=== PATIENT | female | born 1990 | race Caucasian/White ===

== ENCOUNTER 2019-02-03 21:34 | Emergency (ER) | payer MEDICAID ==
--- NOTE | 2019-02-03 23:06 | UC ---
Knee Pain HPI - HPI Summary HPI Summary: FELL DOWN THE STAIRS 3 DAYS AGO AND INJURED HER LEFT KNEE. STATES THE PAIN IS PERSISTENT. IS ABLE TO WEIGHT-BEAR BUT WITH PAIN. - History of Current Complaint Chief Complaint: UCLowerExtremity Stated Complaint: KNEE PAIN Time Seen by Provider: 02/03/19 22:34 Hx Obtained From: Patient Hx Last Menstrual Period: IUD Onset/Duration: Sudden Onset, Lasting Days, Still Present Severity Initially: Moderate Severity Currently: Moderate Pain Intensity: 4 Pain Scale Used: 0-10 Numeric Character: Sharp Aggravating Factor(s): Movement, Weight Bearing Alleviating Factor(s): Rest Associated Signs And Symptoms: Positive: Negative Able to Bear Weight: Yes - WITH PAIN - Allergies/Home Medications Allergies/Adverse Reactions: Allergies Allergy/AdvReac Type Severity Reaction Status Date / Time No Known Allergies Allergy Verified 02/03/19 22:05 Home Medications: Home Medications Ibuprofen TAB* [Advil TAB*] 600 mg PO PRN 02/03/19 [History] Iud* 02/03/19 [History] PMH/Surg Hx/FS Hx/Imm Hx Previously Healthy: Yes - Surgical History Surgical History: Yes Surgery Procedure, Year, and Place: breast reduction 2011 - Family History Known Family History: Positive: Non-Contributory - Social History Alcohol Use: Occasionally Substance Use Type: None Smoking Status (MU): Never Smoked Tobacco Review of Systems All Other Systems Reviewed And Are Negative: Yes Constitutional: Positive: Negative Skin: Positive: Negative Respiratory: Positive: Negative Cardiovascular: Positive: Negative Gastrointestinal: Positive: Negative Musculoskeletal: Positive: Arthralgia. Negative: Decreased ROM, Edema Physical Exam Triage Information Reviewed: Yes Appearance: Well-Appearing, No Pain Distress, Well-Nourished Vital Signs: Initial Vital Signs Temp 98.6 F 02/03/19 22:02 Pulse 104 02/03/19 22:02 Resp 16 02/03/19 22:02 BP 110/66 02/03/19 22:02 Pulse Ox 99 02/03/19 22:02 Vital Signs Reviewed: Yes Eyes: Positive: Conjunctiva Clear ENT: Positive: Hearing grossly normal Neck: Positive: Supple Respiratory: Positive: No respiratory distress, No accessory muscle use Cardiovascular: Positive: Pulses Normal Abdomen Description: Positive: Soft Musculoskeletal: Positive: ROM Intact, No Edema, Other: - LEFT KNEE: NO JOINT LINE TENDERNESS OR FOCAL TENDERNESS OVER ANY BONY PROMINENCES. HAS MILD DIFFUSE TENDERNESS. MCL AND LCL INTACT TO STRESS TESTING. NEG LACHMANS. NEG DRAWERS SIGNS. NEG MCMURRAYS. NEG PATELLAR APPREHENSION TEST. FULL ROM Neurological: Positive: Alert Psychological: Positive: Age Appropriate Behavior Skin: Negative: Rashes Diagnostics - Radiology LEFT KNEE XRAY Radiology Interpretation Completed By: ED Physician Summary of Radiographic Findings: NO FRACTURE Knee Pain Course/Dx - Course Course Of Treatment: NO FRACTURE ON MY INITIAL INTERPRETATION TODAY. RADIOLOGY READ PENDING. MARCO WRAP APPLIED BY RN. PATIENT DECLINES CRUTCHES. IS REQUESTING PAIN MEDICATION. ADVISED THAT HER INJURY DOES NOT JUSTIFY NARCOTIC PRESCRIPTION TODAY. OFFERED PRESCRIPTION STRENGTH ANTI-INFLAMMATORIES. PATIENT DECLINES. ADVISED FOLLOW-UP WITH ORTHOPEDICS IF HER SYMPTOMS ARE NOT IMPROVING OVER THE NEXT WEEK OR SO. - Differential Dx/Diagnosis Provider Diagnosis: Left knee sprain Discharge ED - Sign-Out/Discharge Documenting (check all that apply): Patient Departure All imaging exams completed and their final reports reviewed: No - Discharge Plan Condition: Stable Disposition: HOME Patient Education Materials: Knee Sprain (ED) Referrals: Dung Alonzo MD [Medical Doctor] - If Needed Additional Instructions: XRAY TODAY NEGATIVE FOR FRACTURE OR DISLOCATION ON MY INITIAL INTERPRETATION. WE WILL CALL YOU TOMORROW IF THE RADIOLOGY READ DIFFERS. YOUR SYMPTOMS SHOULD IMPROVE SIGNIFICANTLY OVER THE NEXT 1-2 WEEKS. IF YOU DO NOT IMPROVE EXPECTED FOLLOW-UP WITH YOUR PCP OR ORTHO. YOU MAY BENEFIT FROM REPEAT/MORE ADVANCED IMAGING AT THAT TIME. OTC IBUPROFEN OR ALEVE NEEDED FOR DISCOMFORT. REST, ICE, COMPRESS, ELEVATE. MARCO WRAP NEEDED FOR SYMPTOM RELIEF. BE SURE TO GO THROUGH SLOW RANGE OF MOTION AND STRETCHING EXERCISES DAILY YOU ARE ABLE TO PREVENT STIFFENING UP AND MAKING THE DISCOMFORT WORSE. - Billing Disposition and Condition Condition: STABLE Disposition: Home
--- NOTE | 2019-02-04 11:09 | UC ---
- Progress Note Progress Note: RADIOLOGY REPORT REVIEWED. CONFIRMS NO EVIDENCE FOR FRACTURE. NO CHANGE IN MANAGEMENT. Course/Dx - Diagnoses Provider Diagnoses: Left knee sprain Discharge ED - Sign-Out/Discharge Documenting (check all that apply): Post-Discharge Follow Up All imaging exams completed and their final reports reviewed: Yes - Discharge Plan Condition: Stable Disposition: HOME Patient Education Materials: Knee Sprain (ED) Referrals: Dung Alonzo MD [Medical Doctor] - If Needed Additional Instructions: XRAY TODAY NEGATIVE FOR FRACTURE OR DISLOCATION ON MY INITIAL INTERPRETATION. WE WILL CALL YOU TOMORROW IF THE RADIOLOGY READ DIFFERS. YOUR SYMPTOMS SHOULD IMPROVE SIGNIFICANTLY OVER THE NEXT 1-2 WEEKS. IF YOU DO NOT IMPROVE EXPECTED FOLLOW-UP WITH YOUR PCP OR ORTHO. YOU MAY BENEFIT FROM REPEAT/MORE ADVANCED IMAGING AT THAT TIME. OTC IBUPROFEN OR ALEVE NEEDED FOR DISCOMFORT. REST, ICE, COMPRESS, ELEVATE. MARCO WRAP NEEDED FOR SYMPTOM RELIEF. BE SURE TO GO THROUGH SLOW RANGE OF MOTION AND STRETCHING EXERCISES DAILY YOU ARE ABLE TO PREVENT STIFFENING UP AND MAKING THE DISCOMFORT WORSE. - Billing Disposition and Condition Condition: STABLE Disposition: Home
== END 2019-02-03 23:07 | disposition home or self-care (01) ==
LOC: UCEAST 21:34
DX: S83.92XA Sprain of unspecified site of left knee, initial encounter (principal); W10.9XXA Fall (on) (from) unspecified stairs and steps, initial encounter; Y92.9 Unspecified place or not applicable
CPT/HCPCS: 99202; G0463

== ENCOUNTER 2019-04-05 17:22 | Emergency (ER) | payer OTHER ==
--- NOTE | 2019-04-05 17:38 | UC ---
FLU HPI - HPI Summary HPI Summary: fever and body aches for 3 days---no n/v/d or sore throat - History of Current Complaint Chief Complaint: UCGeneralIllness Stated Complaint: FEVER, AND ACHES Time Seen by Provider: 04/05/19 17:30 Hx Obtained From: Patient Hx Last Menstrual Period: IUD ?: No Onset/Duration: Sudden Onset, Lasting Days - 3 Severity Currently: Moderate Severity Initially: Moderate Associated Signs & Symptoms: Positive: Fever, T Max - 103, Myalgia - Allergy/Home Medications Allergies/Adverse Reactions: Allergies Allergy/AdvReac Type Severity Reaction Status Date / Time No Known Allergies Allergy Verified 04/05/19 17:40 Home Medications: Home Medications Acetaminophen/Dextromethorphan [Cold & Cough Daytime 1000-30 mg/30Ml] 1 liq PO Q12H PRN 04/05/19 [History Confirmed 04/05/19] Guaifenesin/Pseudo 600/60(NF) [Mucinex D 600/60 (NF)] 1 tab PO Q12H PRN [History Confirmed 04/05/19] PMH/Surg Hx/FS Hx/Imm Hx Previously Healthy: Yes - Surgical History Surgical History: Yes Surgery Procedure, Year, and Place: breast reduction 2011 - Family History Known Family History: Positive: None, Non-Contributory - Social History Occupation: Student Lives: With Family Alcohol Use: Occasionally Substance Use Type: None Smoking Status (MU): Never Smoked Tobacco Review of Systems All Other Systems Reviewed And Are Negative: Yes Constitutional: Positive: Fever, Chills, Fatigue Skin: Positive: Negative Eyes: Positive: Negative ENT: Positive: Negative Respiratory: Positive: Cough Cardiovascular: Positive: Negative Gastrointestinal: Positive: Negative Genitourinary: Positive: Negative Motor: Positive: Negative Neurovascular: Positive: Negative Musculoskeletal: Positive: Arthralgia, Myalgia Neurological: Positive: Negative Psychological: Positive: Negative Is Patient Immunocompromised?: No Physical Exam Triage Information Reviewed: Yes Appearance: No Pain Distress, Well-Nourished, Ill-Appearing - mild- Vital Signs Reviewed: Yes Eye Exam: Normal Eyes: Positive: Conjunctiva Clear ENT Exam: Normal ENT: Positive: Normal ENT inspection, Hearing grossly normal, TMs normal, Uvula midline. Negative: Nasal congestion, Trismus, Muffled voice, Hoarse voice, Dental tenderness, Sinus tenderness Dental Exam: Normal Neck exam: Normal Respiratory Exam: Normal Respiratory: Positive: Chest non-tender, Lungs clear, Normal breath sounds, No respiratory distress, No accessory muscle use Cardiovascular Exam: Normal Cardiovascular: Positive: RRR, No Murmur, Pulses Normal, Brisk Capillary Refill Musculoskeletal Exam: Normal Musculoskeletal: Positive: Strength Intact, ROM Intact, No Edema Neurological Exam: Normal Neurological: Positive: Alert, Muscle Tone Normal Psychological Exam: Normal Skin Exam: Normal Diagnostics - Laboratory Lab Results: influenza A + Flu Course/Dx - Course Course Of Treatment: rest increase fluids. otc medications for symptom relief follow with pcp or return as needed for worsening sx - Differential Dx/Diagnosis Provider Diagnosis: Influenza A Discharge ED - Sign-Out/Discharge Documenting (check all that apply): Patient Departure All imaging exams completed and their final reports reviewed: No Studies - Discharge Plan Condition: Stable Disposition: HOME Patient Education Materials: Influenza (ED) Referrals: [facility] [Outside] - If Needed - Billing Disposition and Condition Condition: STABLE Disposition: Home - Attestation Statements Provider Attestation: Per institutional requirements, I have reviewed the chart, however, I was not consulted specifically or made aware of this patient by the midlevel provider. I did not personally evaluate, interact with , or disposition this patient.
[2019-04-05 17:44] VITALS: BP 127/100
[2019-04-05 17:48] LABS: Influenza A Molecular POSITIVE (Negative)
== END 2019-04-05 18:06 | disposition home or self-care (01) ==
LOC: UCEAST 17:22
DX: J11.1 Influenza due to unidentified influenza virus with other respiratory manifestations (principal)
CPT/HCPCS: 99211; G0463